=== PATIENT | female | born 1980 | race Caucasian/White ===

== ENCOUNTER 2016-08-23 16:45 | Outpatient (RCR) | payer BC | END 2016-08-27 | LOC: M PT 16:45 | PROVIDERS: ATTEND Physician Assistant | DX: Z51.89 Encounter for other specified aftercare (principal); G57.01 Lesion of sciatic nerve, right lower limb ==

== ENCOUNTER → 2016-09-13 | Outpatient (REF) | payer BC | LOC: M LAB REF 13:18 | PROVIDERS: ATTEND Physician Assistant | DX: M54.5 Low back pain (principal) ==

== ENCOUNTER → 2016-12-30 | Outpatient (REF) | payer BC ==
[2016-12-30 13:00] LABS: VITAMIN B12 LEVEL 342 PG/ML
[2016-12-30 13:01] LABS: FOLATE 15.1 NG/ML; MEAN CORPUSCULAR HEMOGLOBIN 30.2 pg (27.0-33.0); MEAN CORPUSCULAR HGB CONC 34.2 g/dl (32.0-36.5); MEAN CORPUSCULAR VOLUME 88.2 fl (80.0-96.0); WHITE BLOOD COUNT 5.2 K/mm3 (4.0-10.0)
[2016-12-30 13:15] LABS: ALBUMIN 3.6 GM/DL (3.2-5.2); ALBUMIN/GLOBULIN RATIO 0.92 (1.00-1.93); ALKALINE PHOSPHATASE 66 U/L (45-117); ALT/SGPT 58 U/L (12-78); ANION GAP 8 MEQ/L (8-16); AST/SGOT 31 U/L (15-37); BILIRUBIN,TOTAL 0.5 MG/DL (0.2-1.0); BLOOD UREA NITROGEN 9 MG/DL (7-18); CALCIUM LEVEL 9.3 MG/DL (8.5-10.1); CARBON DIOXIDE LEVEL 28 MEQ/L (21-32); CHLORIDE LEVEL 105 MEQ/L (98-107); CREATININE FOR GFR 0.89 MG/DL (0.55-1.02); FREE T4 0.99 NG/DL (0.76-1.46); GLOMERULAR FILTRATION RATE > 60.0 (>60); GLUCOSE, FASTING 125 MG/DL (70-105); POTASSIUM SERUM 3.9 MEQ/L (3.5-5.1); SODIUM LEVEL 141 MEQ/L (136-145); TOTAL PROTEIN 7.5 GM/DL (6.4-8.2)
== END ==
LOC: M SFHCADAM 08:37
PROVIDERS: ATTEND Physician Assistant
DX: G43.019 Migraine without aura, intractable, without status migrainosus (principal); F90.9 Attention-deficit hyperactivity disorder, unspecified type; E55.9 Vitamin D deficiency, unspecified

== ENCOUNTER → 2017-02-11 | Outpatient (CLI) | payer BC ==
--- NOTE | 2017-02-11 13:36 | REP ---
Digital diagnostic bilateral mammography with CAD and focused right breast sonography: History: Right breast lump present for 1 week. Painful and pea-sized according to the patient. 11 o'clock position. No comparison mammography. Mammographic findings: Routine views of the right breast are augmented by magnified focal spot compression images. These are obtained with a skin marker affixed to the skin at the site of the palpable lump. These demonstrate a normal appearing 7 mm lymph node in the upper outer quadrant of the right breast near the skin marker. No other dominant density is seen. Scattered fibroglandular elements are noted in a bilateral and symmetric pattern. No dominant density, microcalcification or architectural distortion is seen. No other significant mammographic finding. Sonographic findings: Focused right breast sonography is performed from 9 o'clock to 12 o'clock through the upper outer quadrant. Mildly heterogeneous fibroglandular background echotexture is seen. No cyst or mass is seen. Impression: BIRADS category II benign bilateral breast imaging. This negative report should not dissuade one from biopsy of a palpable lump depending on its clinical characteristics. Clinical follow-up is advised. BI-RADS/ACR category 2 mammogram. Benign finding(s). Routine annual screening mammography (for women over age 40). This mammogram was interpreted with the aid of an FDA-approved computer-aided detection system. The patient states she/he had a clinical breast exam in February 16, 2013. The patient letter being requested is M2. Signed by Allan Gusman MD 02/11/2017 02:49 P
== END ==
LOC: M RAD 10:55
PROVIDERS: ATTEND Obstetrics & Gynecology
DX: N63 Unspecified lump in breast (principal)
CPT/HCPCS: 76642; G0204

== ENCOUNTER 2017-06-09 18:01 | Emergency (ER) | payer BC ==
[2017-06-09] MEDS: diazePAM 5 MG TAB PO (19:45)
[2017-06-09] MEDS: predniSONE 20 MG TAB PO (19:45)
== END 2017-06-09 19:58 | disposition home or self-care (01) ==
LOC: M ED 18:01
DX: M54.12 Radiculopathy, cervical region (principal); S46.912A Strain of unspecified muscle, fascia and tendon at shoulder and upper arm level, left arm, initial encounter; X58.XXXA Exposure to other specified factors, initial encounter; Y92.89 Other specified places as the place of occurrence of the external cause; Y93.89 Activity, other specified; Y99.8 Other external cause status; R07.9 Chest pain, unspecified; F41.9 Anxiety disorder, unspecified; E28.2 Polycystic ovarian syndrome; Z79.899 Other long term (current) drug therapy; Z88.5 Allergy status to narcotic agent
CPT/HCPCS: 93005

== ENCOUNTER → 2017-10-20 | Outpatient (REF) | payer BC ==
[2017-10-20 12:52] LABS: APPEARANCE, URINE CLEAR (CLEAR); BACTERIA, URINE AUTO NEGATIVE (NEGATIVE); BILIRUBIN, URINE AUTO NEGATIVE (NEGATIVE); BLOOD, URINE BLOOD 1+ (NEGATIVE); COLOR, URINE YELLOW (YELLOW); GLUCOSE, URINE (UA) AUTO NEGATIVE (NEGATIVE); KETONE, URINE AUTO NEGATIVE (NEGATIVE); LEUKOCYTE ESTERASE, URINE AUTO NEGATIVE (NEGATIVE); NITRITE, URINE AUTO NEGATIVE (NEGATIVE); PROTEIN, URINE AUTO NEGATIVE (NEGATIVE); RBC, URINE AUTO 2 /HPF (0-3); SPECIFIC GRAVITY URINE AUTO 1.011 (1.002-1.035); SQUAMOUS EPITHELIAL CELL UR AU 0 /HPF (0-6); UROBILINOGEN, URINE AUTO 0.2 mg/dL (0.0-2.0); WBC, URINE AUTO 1 /HPF (0-3)
== END ==
LOC: M SFHCADAM 12:14
DX: R30.0 Dysuria (principal)
CPT/HCPCS: 81001

== ENCOUNTER → 2018-03-13 | Outpatient (CLI) | payer BC | LOC: M RAD 12:17 | DX: N63.0 Unspecified lump in unspecified breast (principal) | CPT/HCPCS: 77065 ==

== ENCOUNTER → 2018-03-14 | Outpatient (REF) | payer BC ==
[2018-03-14 19:50] LABS: HEMOGLOBIN 14.1 g/dl (12.0-15.5); MEAN CORPUSCULAR HEMOGLOBIN 29.4 pg (27.0-33.0); MEAN CORPUSCULAR HGB CONC 33.6 g/dl (32.0-36.5); MEAN CORPUSCULAR VOLUME 87.7 fl (80.0-96.0); PLATELET COUNT, AUTOMATED 367 10^3/uL (150-450); RED BLOOD COUNT 4.79 10^6/uL (4.00-5.40); RED CELL DISTRIBUTION WIDTH 12.9 % (11.5-14.5); WHITE BLOOD COUNT 9.7 10^3/uL (4.0-10.0)
[2018-03-14 20:24] LABS: ERYTHROCYTE SEDIMENTATION RATE 27 mm/hr (0-20)
[2018-03-14 20:25] LABS: ALBUMIN 3.8 GM/DL (3.2-5.2); ALBUMIN/GLOBULIN RATIO 0.93 (1.00-1.93); ALKALINE PHOSPHATASE 68 U/L (45-117); ALT/SGPT 31 U/L (12-78); ANION GAP 9 MEQ/L (8-16); AST/SGOT 20 U/L (7-37); BILIRUBIN,TOTAL 0.3 MG/DL (0.2-1.0); BLOOD UREA NITROGEN 9 MG/DL (7-18); CARBON DIOXIDE LEVEL 26 MEQ/L (21-32); CHLORIDE LEVEL 104 MEQ/L (98-107); CREATININE FOR GFR 0.86 MG/DL (0.55-1.30); FOLATE 12.8 NG/ML; FREE T4 0.92 NG/DL (0.76-1.46); GLOMERULAR FILTRATION RATE > 60.0 (>60); GLUCOSE, FASTING 68 MG/DL (70-100); MAGNESIUM LEVEL 2.1 MG/DL (1.8-2.4); POTASSIUM SERUM 3.8 MEQ/L (3.5-5.1); RHEUMATOID FACTOR QUANT < 10.0 IU/ML (<15.0); SODIUM LEVEL 139 MEQ/L (136-145); TOTAL 25(OH) VITAMIN D 18.2 NG/ML (30.0-100.0); TOTAL PROTEIN 7.9 GM/DL (6.4-8.2)
[2018-03-17 00:07] LABS: ANA (HEP2) Negative (.); Lyme Disease IgG/IgM Antibodie <0.91 ISR (0.00-0.90); Lyme Disease IgM Ab Quantitati <0.80 index (0.00-0.79)
== END ==
LOC: M SFHCADAM 17:03
DX: E55.9 Vitamin D deficiency, unspecified (principal); E28.2 Polycystic ovarian syndrome; G47.33 Obstructive sleep apnea (adult) (pediatric); M79.7 Fibromyalgia

== ENCOUNTER → 2018-03-28 | Outpatient (REF) | payer BC | LOC: M LAB REF 17:07 | DX: R30.0 Dysuria (principal) | CPT/HCPCS: 87086 ==

== ENCOUNTER → 2018-03-28 | Outpatient (REF) | payer BC | LOC: M LAB REF 18:03 | DX: Z12.4 Encounter for screening for malignant neoplasm of cervix (principal) | CPT/HCPCS: G0123 ==

== ENCOUNTER → 2018-04-25 | Outpatient (REF) | payer BC | LOC: M LAB REF 12:49 | DX: J02.9 Acute pharyngitis, unspecified (principal) | CPT/HCPCS: 87081 ==

== ENCOUNTER → 2018-06-27 | Outpatient (REF) | payer BC ==
[~2018-06-27] MED LIST: AMBI5TAB PO; FLUO10CA8 PO; IBUP80TA PO; PRED20TA PO; SPIR-10 PO; VALI5TAB PO
[2018-06-27 19:55] LABS: BASO % 0.4 % (0.0-1.0); EOS # 0.1 10^3/uL (0.0-0.50); EOS % 1.2 % (0.0-3.0); HEMATOCRIT 43.2 % (36.0-47.0); HEMOGLOBIN 14.8 g/dl (12.0-15.5); LYMPH % 41.9 % (24.0-44.0); MEAN CORPUSCULAR HEMOGLOBIN 29.5 pg (27.0-33.0); MEAN CORPUSCULAR HGB CONC 34.3 g/dl (32.0-36.5); MEAN CORPUSCULAR VOLUME 86.1 fl (80.0-96.0); MONO # 0.8 10^3/uL (0.0-0.8); MONO % 7.9 % (0.0-5.0); NEUTROPHILS # 4.5 10^3/uL (1.8-7.7); NEUTROPHILS % 48.1 % (36.0-66.0); PLATELET COUNT, AUTOMATED 395 10^3/uL (150-450); RED BLOOD COUNT 5.02 10^6/uL (4.00-5.40); WHITE BLOOD COUNT 9.4 10^3/uL (4.0-10.0)
[2018-06-27 20:08] LABS: ALT/SGPT 37 U/L (12-78); AMYLASE 51 U/L (25-115); BILIRUBIN,TOTAL 0.2 MG/DL (0.2-1.0); BLOOD UREA NITROGEN 13 MG/DL (7-18); CALCIUM LEVEL 9.1 MG/DL (8.5-10.1); CARBON DIOXIDE LEVEL 26 MEQ/L (21-32); CHLORIDE LEVEL 101 MEQ/L (98-107); CREATININE FOR GFR 0.83 MG/DL (0.55-1.30); FREE T4 0.84 NG/DL (0.76-1.46); GLOMERULAR FILTRATION RATE > 60.0 (>60); GLUCOSE, FASTING 77 MG/DL (70-100); LIPASE 230 U/L (73-393); POTASSIUM SERUM 4.3 MEQ/L (3.5-5.1); SODIUM LEVEL 137 MEQ/L (136-145); TOTAL PROTEIN 8.1 GM/DL (6.4-8.2)
== END ==
LOC: M SFHCADAM 15:57
PROVIDERS: ATTEND Physician Assistant
DX: K52.9 Noninfective gastroenteritis and colitis, unspecified (principal)

== ENCOUNTER → 2018-07-04 | Outpatient (REF) | payer BC | LOC: M SFHCADAM 14:18 | PROVIDERS: ATTEND Physician Assistant | DX: K52.9 Noninfective gastroenteritis and colitis, unspecified (principal) ==

== ENCOUNTER → 2018-07-04 | Outpatient (CLI) | payer BC ==
[~2018-07-04] MED LIST changes: +GASTROGRAFIN SOLUTION 30ML (Q9963) As Ordered ONE; +ISOVUE-370 76% 100ML VIAL (Q9967) As Ordered ONE
--- NOTE | 2018-07-04 13:23 | REP ---
CT abdomen and pelvis with IV and oral contrast: History: Left lower quadrant abdominal pain. Comparison study: November 03, 2015. CT contrast dose: 100 ml of intravenous Isovue [address] findings: Digital preliminary labor relations or personnel negotiator radiograph demonstrates a normal bowel gas pattern. There are clips in right upper quadrant. The lung bases are clear on axial CT images. There is mild to moderate diffuse fatty infiltration of the liver. The liver is felt to be mildly enlarged with a craniocaudal midclavicular vertical span of 17.4 cm. No focal hepatic lesion is seen. Spleen is normal in size homogeneous in texture. No pancreatic abnormality is observed. Gallbladder surgically absent. Common bile duct is not dilated and there is no evidence of intrahepatic biliary ductal dilation. Normal adrenal glands are seen bilaterally. The kidneys enhance symmetrically. The left kidney is larger than the right and there are appears to be duplicated collecting system on the left. A normal appendix is seen. There is no evidence of free fluid. No retroperitoneal or pelvic adenopathy is observed. Normal uterus and ovaries. Urinary bladder is unremarkable. No abdominal wall defect is seen. Bone window settings show no bony destructive lesion. Impression: Fatty infiltration of the liver and mild hepatomegaly. Post cholecystectomy. Otherwise normal CT study abdomen and pelvis with IV and oral contrast. Electronically Signed by Allan Gusman MD 07/04/2018 08:37 P
== END ==
LOC: M RAD 10:35
PROVIDERS: ATTEND Physician Assistant
DX: R10.32 Left lower quadrant pain (principal)
CPT/HCPCS: 74177; Q9963; Q9967

== ENCOUNTER 2018-07-17 03:28 | Emergency (ER) | payer BC ==
[~2018-07-17] VITALS: Ht 162.6 cm; Wt 90.0 kg
[~2018-07-17 03:28] MED LIST changes: -GASTROGRAFIN SOLUTION 30ML (Q9963) As Ordered ONE; -ISOVUE-370 76% 100ML VIAL (Q9967) As Ordered ONE
[2018-07-17] MEDS ORDERED: PROB250C PO (03:39)
[2018-07-17] MEDS ORDERED: VANC125C2 PO (03:39)
[2018-07-17 04:40] LABS: BASO % 0.3 % (0.0-1.0); EOS # 0.1 10^3/uL (0.0-0.50); EOS % 0.8 % (0.0-3.0); HEMATOCRIT 42.3 % (36.0-47.0); HEMOGLOBIN 14.6 g/dl (12.0-15.5); LYMPH # 3.7 10^3/uL (1.5-4.5); LYMPH % 38.4 % (24.0-44.0); MEAN CORPUSCULAR HGB CONC 34.5 g/dl (32.0-36.5); MONO # 0.9 10^3/uL (0.0-0.8); MONO % 9.2 % (0.0-5.0); NEUTROPHILS # 4.9 10^3/uL (1.8-7.7); NEUTROPHILS % 50.9 % (36.0-66.0); PLATELET COUNT, AUTOMATED 342 10^3/uL (150-450); RED BLOOD COUNT 4.86 10^6/uL (4.00-5.40); WHITE BLOOD COUNT 9.7 10^3/uL (4.0-10.0)
[2018-07-17 04:46] LABS: ALBUMIN 3.7 GM/DL (3.2-5.2); ALT/SGPT 47 U/L (12-78); BILIRUBIN,DIRECT 0.1 MG/DL (0.0-0.2); BILIRUBIN,TOTAL 0.3 MG/DL (0.2-1.0); BLOOD UREA NITROGEN 10 MG/DL (7-18); CALCIUM LEVEL 8.8 MG/DL (8.5-10.1); CARBON DIOXIDE LEVEL 28 MEQ/L (21-32); CHLORIDE LEVEL 103 MEQ/L (98-107); CREATININE FOR GFR 0.95 MG/DL (0.55-1.30); GLOMERULAR FILTRATION RATE > 60.0 (>60); GLUCOSE, FASTING 89 MG/DL (70-100); LIPASE 203 U/L (73-393); POTASSIUM SERUM 3.7 MEQ/L (3.5-5.1); SODIUM LEVEL 138 MEQ/L (136-145); TOTAL PROTEIN 7.8 GM/DL (6.4-8.2)
[2018-07-17 04:52] LABS: HCG, SERUM QUALITATIVE NEGATIVE (NEGATIVE)
[2018-07-17] MEDS ORDERED: ONDANSETRON 4MG/2ML VIAL (J2405) IV ONE (06:00)
[2018-07-17] MEDS: MORPHINE 4 MG/ML 1ML VIAL/SYRINGE (J2270) IV PRN ×2 (06:19→07:57)
[2018-07-17] MEDS ORDERED: ISOVUE-370 76% 100ML VIAL (Q9967) As Ordered ONE (06:34)
--- NOTE | 2018-07-17 07:38 | REPVR ---
EXAM: CT Abdomen and Pelvis With Contrast EXAM DATE/TIME: 07/17/2018 6:40 AM CLINICAL HISTORY: 37 years old, female; Abdominal pain; C. difficile TECHNIQUE: Axial computed tomography images of the abdomen and pelvis with intravenous contrast. All CT scans at this facility use at least one of these dose optimization techniques: automated exposure control; mA and/or kV adjustment per patient size (includes targeted exams where dose is matched to clinical indication); or iterative reconstruction. Coronal and sagittal reformatted images were created and reviewed. CONTRAST: 100 ml of iso 370 administered intravenously. COMPARISON: CT ABD PELVIS WITH CONTRAST 07/04/2018 12:28 PM FINDINGS: Lower thorax: There is a small sliding hiatal hernia. ABDOMEN: Liver: The attenuation of the liver is more than 40 Hounsfield units lower in attenuation compared to the spleen, which is compatible with fatty liver infiltration. No liver lesion is seen. The contour of the liver is smooth. The liver is enlarged. Gallbladder and bile ducts: There has been a cholecystectomy. There is no fluid collection in the gallbladder fossa. No dilation of the bile ducts is noted. Pancreas: Normal. No ductal dilation. Spleen: Normal. No splenomegaly is noted. Adrenals: Normal. No mass. Kidneys and ureters: There is a 7 mm cyst in the superior third of the left kidney, which is unchanged compared to the prior CT scan on 07/04/2018. No solid renal mass is noted. 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 No stones are noted in the kidneys or ureters. There is no hydronephrosis or hydroureter. There are no wedge-shaped areas of low attenuation in the kidneys to suggest pyelonephritis. There is no renal abscess or perinephric fluid collection. Stomach and bowel: There is mild sigmoid diverticulosis without evidence for diverticulitis. There is no evidence for a bowel obstruction, colitis, pneumatosis intestinalis, intussusception, volvulus, or perforated viscus. Appendix: Normal. There is no evidence for appendicitis. PELVIS: Bladder: The partially distended urinary bladder is unremarkable. No stones or masses are seen in the bladder. Reproductive: The uterus is anterverted and unremarkable. The ovaries are unremarkable. ABDOMEN and PELVIS: Intraperitoneal space: Normal. No free air. No fluid collection. Bones/joints: There is a lumbosacral transitional vertebra, and there is broadening of the right transverse process of the lumbosacral transitional vertebra, which forms a pseudoarticulation with the right side of the sacrum (Castellvi type IIa lumbosacral transitional vertebra) that stabilizes the level below the lumbosacral transitional vertebra and leads to the propensity for increased mobility and degenerative disc disease at the level above the lumbosacral transitional vertebra (Bertolotti's syndrome). There are degenerative changes in the lower lumbar spine. The imaged bony structures are intact. There is no suspicious osteolytic or osteoblastic lesion. Soft tissues: There is a tiny fat containing umbilical hernia. Vasculature: The abdominal aorta is normal in caliber and patent. The iliac arteries, common femoral arteries, renal arteries, celiac artery, superior mesenteric artery, and inferior mesenteric artery are patent. The renal veins, portal veins, splenic vein, superior mesenteric vein, and inferior mesenteric vein are patent. Lymph nodes: Normal. No enlarged lymph nodes. IMPRESSION: 1. No acute findings in the abdomen or pelvis. No evidence for a colitis. 2. Enlarged, fatty liver. 3. Mild sigmoid diverticulosis without evidence for diverticulitis. 4. Tiny fat containing umbilical hernia. 5. Small sliding hiatal hernia. Electronically signed by: Amari Arguello On 07/17/2018 07:37:54 AM
[2018-07-17 08:09] VITALS: BP 144/69
[2018-07-17] MEDS ORDERED: PROT1TAB2 PO (08:26)
[2018-07-17] MEDS ORDERED: ONDA4TAB6 PO (08:26)
== END 2018-07-17 08:51 | disposition home or self-care (01) ==
LOC: M ED 03:28
DX: A04.72 Enterocolitis due to Clostridium difficile, not specified as recurrent (principal); R11.2 Nausea with vomiting, unspecified; K44.9 Diaphragmatic hernia without obstruction or gangrene; Z88.5 Allergy status to narcotic agent; Z79.2 Long term (current) use of antibiotics; Z79.899 Other long term (current) drug therapy
CPT/HCPCS: 74177; 80048; 80076; 81001; 83605; 83690; 84703; 85025; 96374; 96375; 96376; 99284; J2270; J2405; Q9967

== ENCOUNTER → 2018-07-26 | Outpatient (REF) | payer BC ==
[~2018-07-26] MED LIST changes: +ONDA4TAB6 PO; +PROB250C PO; +PROT1TAB2 PO; +VANC125C2 PO
== END ==
LOC: M SFHCADAM 12:01
PROVIDERS: ATTEND Physician Assistant
DX: Z86.19 Personal history of other infectious and parasitic diseases (principal)

== ENCOUNTER → 2018-08-09 | Outpatient (CLI) | payer BC ==
[~2018-08-09] MED LIST changes: +DICY20TA11 PO; +RANI1SYP PO; +SUCR1SS PO
[2018-08-09 12:57] LABS: FREE T4 0.96 NG/DL (0.76-1.46); THYROID STIMULATING HORMONE 3.89 uIU/ML (0.358-3.740)
== END ==
LOC: M LAB 11:44
PROVIDERS: ATTEND Internal Medicine Gastroenterology
DX: A04.71 Enterocolitis due to Clostridium difficile, recurrent (principal); K58.0 Irritable bowel syndrome with diarrhea

== ENCOUNTER 2018-08-22 12:23 | Day surgery (SDC) | payer BC ==
[~2018-08-22] VITALS: Ht 162.6 cm; Wt 91.6 kg
[~2018-08-22 12:23] MED LIST changes: +FECAL MICROBIOTA PREPARATION 250 ML BTL (J3590) XX ONE; -VANC125C2 PO; +VANC125C3 PO
[2018-08-22] MEDS ORDERED: PROPOFOL 500 MG/50 ML VIAL As Ordered ONE (13:11)
[2018-08-22] MEDS ORDERED: LIDOCAINE 2% INJ 100 MG/5 ML SDV (FOR ANES.) As Ordered ONE (13:12)
[2018-08-22] MEDS ORDERED: NS 1,000 ML IV ONE (13:15)
--- NOTE | 2018-08-22 13:47 | ROOR ---
Patient Name: Xiao Pope Procedure Date: 08/22/2018 1:37 PM Date of : 1980 Age: 37 Room: [facility] Gender: Female Note Status: Finalized Procedure: Upper GI endoscopy Indications: Epigastric abdominal pain, Heartburn Providers: Christo CLINE MD Referring MD: BETTY Ruiz Requesting Provider: Medicines: Monitored Anesthesia Care Complications: No immediate complications. Procedure: Pre-Anesthesia Assessment: - The heart rate, respiratory rate, oxygen saturations, blood pressure, adequacy of pulmonary ventilation, and response to care were monitored throughout the procedure. The Endoscope was introduced through the mouth, and advanced to the second part of duodenum. The upper GI endoscopy was accomplished without difficulty. The patient tolerated the procedure well. Findings: The esophagus was normal. The stomach was normal. The examined duodenum was normal. Impression: - Normal esophagus. - Normal stomach. - Normal examined duodenum. - No specimens collected. Recommendation: - Observe patient's clinical course. Christo Cline MD Christo CLINE MD 08/22/2018 1:47:20 PM Electronically signed by Christo CLINE MD Number of Addenda: 0 Note Initiated On: 08/22/2018 1:37 PM Estimated Blood Loss: Estimated blood loss: none.
--- NOTE | 2018-08-22 14:07 | ROOR ---
Patient Name: Xiao Pope Procedure Date: 08/22/2018 1:37 PM Date of : 1980 Age: 37 Room: [facility] Gender: Female Note Status: Finalized Procedure: Colonoscopy Indications: Fecal transplant for treatment of recurrent Clostridium difficile diarrhea, Clostridium difficile diarrhea, Irritable bowel syndrome Providers: Christo CLINE MD Referring MD: BETTY Ruiz Requesting Provider: Medicines: Monitored Anesthesia Care Complications: No immediate complications. Procedure: Pre-Anesthesia Assessment: - The heart rate, respiratory rate, oxygen saturations, blood pressure, adequacy of pulmonary ventilation, and response to care were monitored throughout the procedure. The Colonoscope was introduced through the anus and advanced to 10 cm into the ileum. The colonoscopy was performed without difficulty. The patient tolerated the procedure well. The quality of the bowel preparation was good. Findings: The perianal and digital rectal examinations were normal. Fecal Microbiota Transplant (Bacteriotherapy): Donor stool was prepared by a third democrat (purchased) as per protocol. Approximately 250 mL of the emulsified donor stool was instilled in the cecum. A detailed colonoscopic exam could not be performed upon scope withdrawal secondary to limited visibility from the instilled stool. Impression: - Fecal Microbiota Transplant (Bacteriotherapy) performed in the cecum. - A detailed colonoscopic exam could not be performed upon scope withdrawal secondary to limited visibility from the instilled transplant material/stool. - No specimens collected. Recommendation: - Return to my office as previously scheduled. Christo Cline MD Christo CLINE MD 08/22/2018 2:06:33 PM Electronically signed by Christo CLINE MD Number of Addenda: 0 Note Initiated On: 08/22/2018 1:37 PM Estimated Blood Loss: Estimated blood loss: none.
[2018-08-22 14:30] VITALS: BP 116/64
== END 2018-08-22 14:45 | disposition home or self-care (01) ==
LOC: M OPP 12:23
PROVIDERS: ATTEND Internal Medicine Gastroenterology
DX: A04.71 Enterocolitis due to Clostridium difficile, recurrent (principal); A04.72 Enterocolitis due to Clostridium difficile, not specified as recurrent; K58.9 Irritable bowel syndrome, unspecified; R10.13 Epigastric pain; Z79.899 Other long term (current) drug therapy; Z88.5 Allergy status to narcotic agent; Z88.8 Allergy status to other drugs, medicaments and biological substances; Z80.0 Family history of malignant neoplasm of digestive organs

== ENCOUNTER → 2018-09-01 | Outpatient (REF) | payer BC ==
[~2018-09-01] MED LIST changes: -FECAL MICROBIOTA PREPARATION 250 ML BTL (J3590) XX ONE
[2018-09-01 14:43] LABS: CLOSTRIDIUM DIFFICILE PCR NEGATIVE (NEGATIVE)
== END ==
LOC: M LAB REF 13:34
PROVIDERS: ATTEND Internal Medicine Gastroenterology
DX: A04.71 Enterocolitis due to Clostridium difficile, recurrent (principal)

== ENCOUNTER → 2018-09-12 | Outpatient (CLI) | payer BC ==
[~2018-09-12] MED LIST changes: +E-Z-PAQUE 96% w/w SUSP 176GM BTL As Ordered ONE
--- NOTE | 2018-09-12 17:26 | REP ---
Small bowel follow-through The procedure was performed under the direct supervision of Dr. Gusman. The images were reviewed with Dr. Gusman. The manufacturing engineer chief film shows no organomegaly or pathological masses. The intestinal gas pattern is nonspecific. Liquid barium was administered and the barium column was followed through the small bowel to the level of the terminal ileum. Small bowel transit time is approximately 2 hours . During fluoroscopy gentle palpation shows all loops are freely movable and pliable. There are no fixed or angulated loops. The small bowel mucosal pattern is normal in course and caliber. There is no transition to suggest a partial small bowel obstruction. Spot filming of the terminal ileum shows it to be unremarkable. Impression: Small bowel follow-through examination within normal limits. 1.3 minutes of fluoro time was utilized for this procedure. Reviewed by LISSETTE Wilkinson 09/12/2018 04:01 P Electronically Signed by Allan Gusman MD 09/12/2018 05:16 P
== END ==
LOC: M RAD 08:17
PROVIDERS: ATTEND Internal Medicine Gastroenterology
DX: R19.7 Diarrhea, unspecified (principal)

== ENCOUNTER 2018-10-16 11:34 | Emergency (ER) | payer BC ==
[~2018-10-16] VITALS: Ht 162.6 cm; Wt 90.9 kg
[~2018-10-16 11:34] MED LIST changes: -E-Z-PAQUE 96% w/w SUSP 176GM BTL As Ordered ONE
[2018-10-16] MEDS ORDERED: NS 1,000 ML IV ONE (12:45)
[2018-10-16 13:17] LABS: BASO % 0.3 % (0.0-1.0); EOS # 0.1 10^3/uL (0.0-0.50); EOS % 0.6 % (0.0-3.0); HEMATOCRIT 42.7 % (36.0-47.0); HEMOGLOBIN 13.9 g/dl (12.0-15.5); LYMPH # 2.8 10^3/uL (1.5-4.5); LYMPH % 32.6 % (24.0-44.0); MEAN CORPUSCULAR HEMOGLOBIN 29.3 pg (27.0-33.0); MEAN CORPUSCULAR HGB CONC 32.6 g/dl (32.0-36.5); MEAN CORPUSCULAR VOLUME 89.9 fl (80.0-96.0); MONO # 0.7 10^3/uL (0.0-0.8); MONO % 7.6 % (0.0-5.0); NEUTROPHILS % 58.3 % (36.0-66.0); PLATELET COUNT, AUTOMATED 357 10^3/uL (150-450); RED BLOOD COUNT 4.75 10^6/uL (4.00-5.40); WHITE BLOOD COUNT 8.6 10^3/uL (4.0-10.0)
[2018-10-16 13:46] LABS: HCG, SERUM QUALITATIVE NEGATIVE (NEGATIVE)
[2018-10-16 14:06] LABS: ALBUMIN 3.6 GM/DL (3.2-5.2); ALT/SGPT 40 U/L (12-78); BILIRUBIN,DIRECT < 0.1 MG/DL (0.0-0.2); BILIRUBIN,TOTAL 0.4 MG/DL (0.2-1.0); BLOOD UREA NITROGEN 9 MG/DL (7-18); CALCIUM LEVEL 8.7 MG/DL (8.5-10.1); CARBON DIOXIDE LEVEL 25 MEQ/L (21-32); CHLORIDE LEVEL 105 MEQ/L (98-107); CK-MB VALUE MASS < 1.0 NG/ML (<3.6); CPK CREATINE PHOSPHOKINASE 86 U/L (26-192); CREATININE FOR GFR 0.84 MG/DL (0.55-1.30); GLOMERULAR FILTRATION RATE > 60.0 (>60); GLUCOSE, FASTING 84 MG/DL (70-100); LIPASE 193 U/L (73-393); MB/CK RELATIVE INDEX 1.16 (< OR =4); SODIUM LEVEL 139 MEQ/L (136-145); TOTAL PROTEIN 7.9 GM/DL (6.4-8.2); TROPONIN I < 0.02 NG/ML (< 0.10)
--- NOTE | 2018-10-16 14:43 | REP ---
REASON: Chest pain. PRIORS: None. FINDINGS: The superior mediastinal structures are midline. The cardiac silhouette is unremarkable in size, shape, and position. The diaphragmatic surfaces of the lungs are regular, and the costophrenic angles are clear. The pulmonary nicholson are clear. The imaged osseous structures are intact. IMPRESSION: There is no acute cardiopulmonary disease. Electronically Signed by Dax Garcia DO 10/16/2018 03:40 P
[2018-10-16] MEDS ORDERED: KETOROLAC 30 MG/ML VIAL (J1885) IV ONE (15:00)
[2018-10-16 15:52] VITALS: BP 164/80
--- NOTE | 2018-10-16 23:51 | ECGEPIP ---
Stationary ECG Study [facility] - ED Test Date: 2018-10-16 Pat Name: AZALEA CHUNG Department: Room: - Gender: F Census Clerk: : 1980 Requested By: CLINT Maguire PA-C Order Number: [id number] Reading MD: Christo Dupont Measurements Intervals [place] Rate: 89 P: 48 MA: 164 QRS: 25 QRSD: 77 T: 29 QT: 343 QTc: 419 Interpretive Statements SINUS RHYTHM Nonspecific ST-T wave abnormalities Subtle peter-lateral st-t wave morphology changes when compared to tracing done 06-09-17 Electronically Signed On 10-16-2018 23:51:12 EDT by Christo Dupont
== END 2018-10-16 15:55 | disposition home or self-care (01) ==
LOC: M ED 11:34
DX: R94.6 Abnormal results of thyroid function studies (principal); R07.89 Other chest pain; J45.909 Unspecified asthma, uncomplicated; K57.32 Diverticulitis of large intestine without perforation or abscess without bleeding; F41.9 Anxiety disorder, unspecified; F32.9 Major depressive disorder, single episode, unspecified; Z79.899 Other long term (current) drug therapy; Z88.5 Allergy status to narcotic agent
CPT/HCPCS: 71046; 80048; 80076; 82550; 82553; 83690; 84439; 84443; 84484; 84703; 85025; 85379; 93005; 93041; 94760; 96374; 99285; J1885

== ENCOUNTER → 2018-11-09 | Outpatient (REF) | payer BC ==
[2018-11-09 19:23] LABS: HEMATOCRIT 40.8 % (36.0-47.0); HEMOGLOBIN 13.6 g/dl (12.0-15.5); MEAN CORPUSCULAR HEMOGLOBIN 29.9 pg (27.0-33.0); MEAN CORPUSCULAR HGB CONC 33.3 g/dl (32.0-36.5); MEAN CORPUSCULAR VOLUME 89.7 fl (80.0-96.0); PLATELET COUNT, AUTOMATED 337 10^3/uL (150-450); RED BLOOD COUNT 4.55 10^6/uL (4.00-5.40); WHITE BLOOD COUNT 8.2 10^3/uL (4.0-10.0)
[2018-11-09 19:39] LABS: BLOOD UREA NITROGEN 9 MG/DL (7-18); CALCIUM LEVEL 8.8 MG/DL (8.5-10.1); CARBON DIOXIDE LEVEL 29 MEQ/L (21-32); CHLORIDE LEVEL 103 MEQ/L (98-107); CREATININE FOR GFR 0.93 MG/DL (0.55-1.30); GLOMERULAR FILTRATION RATE > 60.0 (>60); GLUCOSE, FASTING 101 MG/DL (70-100); POTASSIUM SERUM 3.7 MEQ/L (3.5-5.1); SODIUM LEVEL 139 MEQ/L (136-145)
[2018-11-09 19:40] LABS: ALBUMIN 3.7 GM/DL (3.2-5.2); ALT/SGPT 47 U/L (12-78); BILIRUBIN,TOTAL 0.2 MG/DL (0.2-1.0); FOLATE 8.4 NG/ML; FREE T4 0.82 NG/DL (0.76-1.46); TOTAL PROTEIN 7.7 GM/DL (6.4-8.2); VITAMIN B12 LEVEL 241 PG/ML
== END ==
LOC: M SFHCADAM 15:04
PROVIDERS: ATTEND Physician Assistant
DX: R53.82 Chronic fatigue, unspecified (principal); R60.9 Edema, unspecified

== ENCOUNTER → 2019-01-09 | Outpatient (REF) | payer BC ==
[2019-01-09 19:36] LABS: FREE T4 0.99 NG/DL (0.76-1.46); THYROID STIMULATING HORMONE 1.89 uIU/ML (0.358-3.740)
== END ==
LOC: M SFHCADAM 16:24
PROVIDERS: ATTEND Physician Assistant
DX: E03.9 Hypothyroidism, unspecified (principal)

== ENCOUNTER 2019-07-27 13:45 | Outpatient (RCR) | payer BC ==
[~2019-07-27 13:45] MED LIST changes: +FLUO10CA15 PO; -FLUO10CA8 PO
== END 2019-07-28 ==
LOC: M PT 13:45
PROVIDERS: ATTEND Orthopaedic Surgery
DX: M25.512 Pain in left shoulder (principal)

== ENCOUNTER → 2019-09-11 | Outpatient (REF) | payer BC ==
[2019-09-11 13:14] LABS: AMORPHOUS SEDIMENT SMALL (NEGATIVE); APPEARANCE, URINE TURBID (CLEAR); BACTERIA, URINE AUTO NEGATIVE (NEGATIVE); BILIRUBIN, URINE AUTO NEGATIVE (NEGATIVE); BLOOD, URINE BLOOD 1+ (NEGATIVE); COLOR, URINE YELLOW (YELLOW); GLUCOSE, URINE (UA) AUTO NEGATIVE (NEGATIVE); KETONE, URINE AUTO NEGATIVE (NEGATIVE); LEUKOCYTE ESTERASE, URINE AUTO NEGATIVE (NEGATIVE); MUCUS, URINE SMALL (NEGATIVE); NITRITE, URINE AUTO NEGATIVE (NEGATIVE); PROTEIN, URINE AUTO NEGATIVE (NEGATIVE); RBC, URINE AUTO 1 /HPF (0-3); SPECIFIC GRAVITY URINE AUTO 1.019 (1.002-1.035); SQUAMOUS EPITHELIAL CELL UR AU 2 /HPF (0-6); UROBILINOGEN, URINE AUTO 0.2 mg/dL (0.0-2.0); WBC, URINE AUTO 0 /HPF (0-3)
== END ==
LOC: M SFHCADAM 12:24
PROVIDERS: ATTEND Physician Assistant
DX: N30.00 Acute cystitis without hematuria (principal)

== ENCOUNTER → 2019-09-11 | Outpatient (CLI) | payer BC ==
[2019-09-11 10:55] LABS: BASO % 0.4 % (0.0-1.0); EOS # 0.1 10^3/uL (0.0-0.5); EOS % 0.7 % (0.0-3.0); HEMATOCRIT 42.3 % (36.0-47.0); LYMPH # 2.7 10^3/uL (1.5-5.0); LYMPH % 28.5 % (24.0-44.0); MEAN CORPUSCULAR HEMOGLOBIN 29.3 pg (27.0-33.0); MEAN CORPUSCULAR HGB CONC 33.1 g/dl (32.0-36.5); MEAN CORPUSCULAR VOLUME 88.5 fl (80.0-96.0); MONO # 0.6 10^3/uL (0.0-0.8); MONO % 6.2 % (0.0-5.0); NEUTROPHILS # 6.1 10^3/uL (1.5-8.5); NEUTROPHILS % 63.6 % (36.0-66.0); PLATELET COUNT, AUTOMATED 382 10^3/uL (150-450); RED BLOOD COUNT 4.78 10^6/uL (4.00-5.40); WHITE BLOOD COUNT 9.6 10^3/uL (4.0-10.0)
--- NOTE | 2019-09-11 11:07 | REP ---
REASON: Cystitis. COMPARISON: None. Right kidney measures 11 x 3.9 x 5.4 cm and the left kidney measures 11.5 x 4.7 x 6.2 cm. The renal cortical echoes are within normal limits bilaterally. There is increased renal sinus echoes. There are no cystic or solid masses. There is no hydronephrosis. The urinary bladder was empty. 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 Electronically Signed by Dax Garcia DO 09/11/2019 11:52 A
[2019-09-11 11:26] LABS: ALBUMIN 3.7 GM/DL (3.2-5.2); ALT/SGPT 44 U/L (12-78); BILIRUBIN,TOTAL 0.3 MG/DL (0.2-1.0); BLOOD UREA NITROGEN 6 MG/DL (7-18); CALCIUM LEVEL 9.2 MG/DL (8.5-10.1); CARBON DIOXIDE LEVEL 29 MEQ/L (21-32); CHLORIDE LEVEL 104 MEQ/L (98-107); CREATININE FOR GFR 0.82 MG/DL (0.55-1.30); GLOMERULAR FILTRATION RATE > 60.0 (>60); GLUCOSE, FASTING 103 MG/DL (70-100); POTASSIUM SERUM 3.7 MEQ/L (3.5-5.1); SODIUM LEVEL 139 MEQ/L (136-145); TOTAL PROTEIN 7.8 GM/DL (6.4-8.2)
== END ==
LOC: M RAD 10:12
PROVIDERS: ATTEND Physician Assistant
DX: N30.00 Acute cystitis without hematuria (principal)

== ENCOUNTER → 2019-09-13 | Outpatient (REF) | payer BC | LOC: M SFHCADAM 07:45 | PROVIDERS: ATTEND Physician Assistant | DX: N23 Unspecified renal colic (principal) ==

== ENCOUNTER → 2019-09-13 | Outpatient (CLI) | payer BC ==
--- NOTE | 2019-09-13 09:16 | REP ---
REASON: Right renal colic, COMPARISON: Multiple, the latest 07/17/2018 a contrast enhanced examination and the latest noncontrast-enhanced examination 11/03/2015. The lung bases are clear and unchanged. There is mild essentially unchanged diffuse low density seen throughout the hepatic parenchyma. Surgical clips are again seen in the gallbladder fossa from previous cholecystectomy. Limited evaluation of the spleen, pancreas, and adrenal glands show no gross abnormalities or significant changes. There is no nephroureterolithiasis, hydronephrosis, or hydroureter. There are no urinary bladder calcifications. No free fluid or free air is seen in the abdomen or pelvis. The intra-abdominal and intrapelvic bowel loops are essentially unchanged an again seen to be within normal limits. There is no evidence of an intra-abdominal mass or adenopathy. The abdominal aorta and para-aortic regions are unchanged and again seen to be within normal limits. In the left hemipelvic, there is a round 2.3 cm sized low density structure most likely of ovarian origin. This has somewhat higher than water density Hounsfield unit readings. It was seen on both prior exams but is slightly larger and slightly less dense today. The images osseous structures are stable and intact. IMPRESSION: 1. There is no evidence of a renal or renal collecting system abnormality. 2. There is mild essentially unchanged diffuse fatty infiltration of the liver. 3. Probable dominant left ovarian follicle. Electronically Signed by Dax Garcia DO 09/13/2019 09:59 A
== END ==
LOC: M RAD 08:18
PROVIDERS: ATTEND Physician Assistant
DX: N23 Unspecified renal colic (principal)

== ENCOUNTER → 2019-11-29 | Outpatient (CLI) | payer BC | LOC: M LABSMTC 12:57 | PROVIDERS: ATTEND Pediatrics | DX: Z03.818 Encounter for observation for suspected exposure to other biological agents ruled out (principal); Z11.59 Encounter for screening for other viral diseases | CPT/HCPCS: C9803; U0002 ==

== ENCOUNTER → 2020-03-31 | Outpatient (REF) | payer BC ==
[~2020-03-31] MED LIST changes: -FLUO10CA15 PO; +FLUO10CA16 PO
[2020-03-31 18:16] LABS: FREE T4 0.84 NG/DL (0.76-1.46); THYROID STIMULATING HORMONE 1.87 uIU/ML (0.358-3.740)
== END ==
LOC: M SFHCADAM 13:43
PROVIDERS: ATTEND Physician Assistant
DX: E03.9 Hypothyroidism, unspecified (principal)

== ENCOUNTER → 2020-10-13 | Outpatient (CLI) | payer BC ==
[~2020-10-13] MED LIST changes: +ISOVUE-300 61% 50ML VIAL As Ordered ONE; +PROHANCE 279.3MG/ML 5ML VIAL As Ordered ONE
--- NOTE | 2020-10-13 17:00 | REP ---
INDICATION: MYOSITIS LT SHOULDER ? LABRAL TEAR/RCT. COMPARISON: None TECHNIQUE: The procedure was performed by LISSETTE Blood, under the direct supervision of Dr. Mcgovern. The benefits and risks of the procedure were explained to the patient, and an informed consent was obtained. Directly prior to the start of the procedure, a formal time-out was completed in the procedure room. The left glenohumeral joint space was localized using fluoroscopic guidance. The skin was prepped and draped in a sterile fashion. Approximately 5 mL of 1% Lidocaine 10 mg/ml was used as a local anesthetic. Using fluoroscopic guidance, a #22 gauge spinal needle was inserted and advanced into the left glenohumeral joint space. Approximately 1 mL of Isovue 300 was injected to verify placement. Approximately twelve mL of a solution containing 20 mL of sterile saline and 0.15 mL of ProHance was injected into the joint space. The needle was removed and the patient was taken to MRI for post procedural imaging. FINDINGS: The patient tolerated the procedure well and there were no immediate complications. IMPRESSION: Fluoroscopic guided in MRI arthrogram injection of the left shoulder. 0.4 minutes of fluoroscopy time was utilized for this procedure. Some fluoroscopic images are performed with last image hold technology. These images require no additional radiation. <Electronically signed by Caitie Bacon > 10/13/20 0900 <Electronically signed by Zay Mcgovern > 10/13/20 [id number]
--- NOTE | 2020-10-13 17:00 | REP ---
INDICATION: MYOSITIS LT SHOULDER ? LABRAL TEAR/RCT. COMPARISON: 08/18/2019. TECHNIQUE: Coronal oblique T1, T2 fat sat, sagittal oblique T2 fat sat, axial T2 fat sat, gradient echo. Post arthrogram T1 fat sat and T2 fat sat in multiple planes. FINDINGS: Rotator cuff: There is stable tendinopathy/tendinitis of the supraspinatus tendon with no full-thickness tear. Acromioclavicular joint: There are mild hypertrophic degenerative changes of the acromioclavicular joint. Acromion: Type 2 Biceps Tendon: In bicipital groove, no tenosynovitis. Hill Sach's deformity: None. Deltoid muscle: No abnormal signal. Biceps labral complex: Intact. Labrum: No tear. Cartilage: No defects. Bone marrow: A lobulated bone lesion is again seen in the humeral head, oval in shape, low in signal on T1 and high in signal on T2. This is unchanged since the prior study and probably represents an enchondroma. Maximum diameter is approximately 1.7 cm. There is no bone marrow edema or occult fracture. Joint fluid: No effusion. IMPRESSION: Stable tendinopathy/tendinitis of the supraspinatus tendon. Mild hypertrophic degenerative changes acromioclavicular joint with a type 2 acromion. No evidence of a labral tear. Stable bone lesion in the humeral head probably representing an enchondroma. <Electronically signed by Zay Mcgovern > 10/13/20 [id number]
== END ==
LOC: M RADPRO 06:50
PROVIDERS: ATTEND Physician Assistant
DX: M75.92 Shoulder lesion, unspecified, left shoulder (principal); M60.812 Other myositis, left shoulder
CPT/HCPCS: 23350; 73223; 77002; A9576; Q9967

== ENCOUNTER → 2021-04-30 | Outpatient (REF) ==
[~2021-04-30] MED LIST changes: -DICY20TA11 PO; +DICY20TA20 PO; -FLUO10CA16 PO; +FLUO10CA18 PO; -ISOVUE-300 61% 50ML VIAL As Ordered ONE; -PROHANCE 279.3MG/ML 5ML VIAL As Ordered ONE
== END ==
LOC: M LABSMTC 11:23
PROVIDERS: ATTEND Pediatrics
DX: Z20.822 Contact with and (suspected) exposure to COVID-19 (principal)

== ENCOUNTER → 2021-05-11 | Outpatient (CLI) | payer BC ==
[~2021-05-11] MED LIST changes: +DICY20TA11 PO; -DICY20TA20 PO; +FLUO10CA16 PO; -FLUO10CA18 PO
[2021-05-11 14:35] LABS: BASO % 0.4 % (0.0-1.0); EOS # 0.1 10^3/uL (0.0-0.5); EOS % 0.6 % (0.0-3.0); HEMATOCRIT 41.7 % (36.0-47.0); HEMOGLOBIN 13.9 g/dl (12.0-15.5); LYMPH # 2.7 10^3/uL (1.5-5.0); MEAN CORPUSCULAR HEMOGLOBIN 29.6 pg (27.0-33.0); MEAN CORPUSCULAR HGB CONC 33.3 g/dl (32.0-36.5); MEAN CORPUSCULAR VOLUME 88.9 fl (80.0-96.0); MONO # 0.5 10^3/uL (0.0-0.8); MONO % 6.4 % (2.0-8.0); NEUTROPHILS # 4.8 10^3/uL (1.5-8.5); NEUTROPHILS % 59.1 % (36.0-66.0); PLATELET COUNT, AUTOMATED 377 10^3/uL (150-450); RED BLOOD COUNT 4.69 10^6/uL (4.00-5.40); WHITE BLOOD COUNT 8.1 10^3/uL (4.0-10.0)
[2021-05-11 16:48] LABS: ALBUMIN 3.9 GM/DL (3.2-5.2); ALT/SGPT 34 U/L (12-78); BILIRUBIN,TOTAL 0.3 MG/DL (0.2-1.0); BLOOD UREA NITROGEN 8 MG/DL (7-18); CARBON DIOXIDE LEVEL 27 MEQ/L (21-32); CHLORIDE LEVEL 106 MEQ/L (98-107); CHOLESTEROL LEVEL 190 MG/DL (<200); CREATININE FOR GFR 0.84 MG/DL (0.55-1.30); GLOMERULAR FILTRATION RATE > 60.0 (>58); GLUCOSE, FASTING 82 MG/DL (70-100); HDL CHOLESTEROL 46 MG/DL (>40); LDL CHOLESTEROL 101 MG/DL (<100); NON-HDL-C 144 MG/DL; POTASSIUM SERUM 3.8 MEQ/L (3.5-5.1); SODIUM LEVEL 138 MEQ/L (136-145); TOTAL 25(OH) VITAMIN D 22.1 NG/ML (30.0-100.0); TOTAL PROTEIN 7.7 GM/DL (6.4-8.2); TRIGLYCERIDES LEVEL 217 MG/DL (<150)
== END ==
LOC: M LAB 12:41
PROVIDERS: ATTEND Nurse Practitioner Family
DX: E78.5 Hyperlipidemia, unspecified (principal); E55.9 Vitamin D deficiency, unspecified; E03.9 Hypothyroidism, unspecified

== ENCOUNTER → 2021-06-22 | Outpatient (REF) ==
[~2021-06-22] MED LIST changes: -DICY20TA11 PO; +DICY20TA20 PO; -FLUO10CA16 PO; +FLUO10CA18 PO
== END ==
LOC: M LABSMTC 09:51
PROVIDERS: ATTEND Family Medicine
DX: Z11.52 Encounter for screening for COVID-19 (principal); Z20.822 Contact with and (suspected) exposure to COVID-19

== ENCOUNTER 2021-09-16 21:56 | Emergency (ER) | payer BC ==
[~2021-09-16] VITALS: Ht 162.6 cm; Wt 90.5 kg
[2021-09-16 22:00] VITALS: BP 163/116
[2021-09-17] MEDS ORDERED: PERCOCET 5MG/325MG TAB PO ONE (00:10)
[2021-09-17] MEDS ORDERED: CLINDAMYCIN 150MG CAPSULE PO ONE (00:10)
[2021-09-17] MEDS ORDERED: KETOROLAC 60MG 2ML VIAL IM ONE (00:10)
[2021-09-17] MEDS ORDERED: PERC5TAB12 PO (00:36)
[2021-09-17] MEDS ORDERED: LIDO2SOL17 PO (00:38)
[2021-09-17] MEDS ORDERED: CLEO300C2 PO (00:38)
== END 2021-09-17 00:50 | disposition home or self-care (01) ==
LOC: M ED 21:56
DX: K08.89 Other specified disorders of teeth and supporting structures (principal); J45.909 Unspecified asthma, uncomplicated; E03.9 Hypothyroidism, unspecified; Z88.5 Allergy status to narcotic agent; Z79.899 Other long term (current) drug therapy
CPT/HCPCS: 96372; 99282; J1885

== ENCOUNTER 2024-07-04 12:27 | Day surgery (SDC) | payer BC ==
[~2024-07-04] VITALS: Ht 162.6 cm; Wt 91.5 kg
[~2024-07-04 12:27] MED LIST changes: +CLEO300C2 PO; +FLUO-290 PO; -FLUO10CA18 PO; +FOLI1TAB11 PO; +LIDO15SO8 PO; +METH2.5T48 PO; +ONDA-282 PO; -ONDA4TAB6 PO; +PERC5TAB12 PO; +SERT50TA29 PO; +SPIR50TA4 PO; +SYNT100T PO; +WELLTAB38 PO
[2024-07-04] MEDS ORDERED: propofoL 200 MG/20 ML VIAL As Ordered ONE (12:51)
[2024-07-04] MEDS ORDERED: LIDOCAINE 2% 100MG/5ML SDV (FOR ANES.) As Ordered ONE (12:51)
[2024-07-04] MEDS ORDERED: fentaNYL 100 MCG/2 ML INJECTION As Ordered ONE (14:45)
[2024-07-04] MEDS ORDERED: ONDANSETRON 4MG 2ML VIAL As Ordered ONE (15:14)
[2024-07-04 15:15] VITALS: TEMP 98
[2024-07-04 15:45] VITALS: BP 135/86; O2SAT 97
== END 2024-07-04 15:50 | disposition home or self-care (01) ==
LOC: M OPP 12:27
PROVIDERS: ATTEND Internal Medicine Gastroenterology
DX: Z12.11 Encounter for screening for malignant neoplasm of colon (principal); Z80.0 Family history of malignant neoplasm of digestive organs; K64.0 First degree hemorrhoids; K57.30 Diverticulosis of large intestine without perforation or abscess without bleeding; R12 Heartburn; I49.9 Cardiac arrhythmia, unspecified; E03.9 Hypothyroidism, unspecified; L40.50 Arthropathic psoriasis, unspecified; F41.9 Anxiety disorder, unspecified; Z88.5 Allergy status to narcotic agent; Z91.018 Allergy to other foods; Z79.890 Hormone replacement therapy; Z79.899 Other long term (current) drug therapy
CPT/HCPCS: 43239; 88305; G0105; J2405; J3010